=== PATIENT | female | born 1985 ===

== ENCOUNTER 2021-03-16 09:45 | Outpatient (CLI) | payer OTHER ==
[2021-03-16] MEDS ORDERED: LACTATED RINGERS 500 ML IV ONE (10:45)
[2021-03-16 11:11] LABS: Bilirubin,Urine NEG (Negative); Blood,Urine NEG (Negative); Color,Urine Colorless (Yellow); Protein,Urine <15 mg/dL mg/dL (Negative); RBC,Urine < 1.0 /HPF (0.0-6.0); Urobilinogen,Urine < 2.0 mg/dL (<2.0)
[2021-03-16 11:12] LABS: Hematocrit 35.5 % (30.3-42.9); Hemoglobin 12.1 gm/dl (10.1-14.3); Mean Corpuscular HGB Conc 34 % (30-34); Mean Corpuscular Volume 92 fl (79-97); Platelet Count 327 K/mm3 (140-440); Red Blood Count 3.86 M/mm3 (3.65-5.03); Red Cell Distribution Width 12.8 % (13.2-15.2)
[2021-03-16 11:28] LABS: WBC,Urine < 1.0 /HPF (0.0-6.0)
[2021-03-16 11:40] LABS: Alanine Aminotransferase 12 units/L (7-56); Uric Acid 3.7 mg/dL (3.5-7.6)
[2021-03-16 11:42] VITALS: BP 148/96
== END 2021-03-16 14:01 | disposition home or self-care (01) ==
LOC: TRG 09:45 → APU 09:47 → TRG 14:01
PROVIDERS: ATTEND Obstetrics & Gynecology
DX: Z34.93 Encounter for supervision of normal pregnancy, unspecified, third trimester (principal); Z3A.31 31 weeks gestation of pregnancy
CPT/HCPCS: 36415; 59025; 81001; 82565; 83615; 84450; 84460; 84550; 85027

== ENCOUNTER 2021-04-13 02:24 | Inpatient (IN) | payer OTHER ==
[2021-04-13] MEDS ORDERED: miSOPROStol 200 MCG TAB PR PRN (04:23)
[2021-04-13] MEDS ORDERED: BUTORPHANOL 2 MG/1 ML INJ IV PRN ×2 (04:23)
[2021-04-13] MEDS ORDERED: MINERAL OIL 30 ML ORAL LIQD PO PRN (04:23)
[2021-04-13] MEDS ORDERED: METHYLERGONOVINE MALEATE 0.2 MG/ML VIAL IM PRN (04:23)
[2021-04-13] MEDS ORDERED: TERBUTALINE 1 MG/1 ML INJ SUB-Q PRN (04:23)
[2021-04-13] MEDS ORDERED: CARBOPROST TROMETHAMINE 250 MCG/1 ML INJ IM PRN (04:23)
[2021-04-13] MEDS ORDERED: LOPERAMIDE 2 MG CAP PO PRN (04:23)
[2021-04-13] MEDS ORDERED: ePHEDrine SULFATE 50 MG/1 ML INJ IV PRN (04:23)
[2021-04-13] MEDS ORDERED: ACETAMINOPHEN 325 MG TAB PO PRN ×2 (04:23→09:00)
[2021-04-13] MEDS ORDERED: ONDANSETRON 4 MG/2 ML INJ IV PRN ×2 (04:23→09:00)
[2021-04-13] MEDS ORDERED: OXYTOCIN 10 UNIT/1 ML INJ IM PRN (04:23)
[2021-04-13] MEDS ORDERED: LIDOCAINE (2%) 20 MG/1 ML VIAL 20 ML MDV INFILTRATI ONE (04:23)
[2021-04-13] MEDS ORDERED: LACTATED RINGERS 1,000 ML IV SCH (04:30)
[2021-04-13 04:48] LABS: Hematocrit 35.4 % (30.3-42.9); Hemoglobin 12.1 gm/dl (10.1-14.3); Mean Corpuscular HGB Conc 34 % (30-34); Mean Corpuscular Volume 90 fl (79-97); Platelet Count 340 K/mm3 (140-440); Red Blood Count 3.93 M/mm3 (3.65-5.03); Red Cell Distribution Width 13.4 % (13.2-15.2)
[2021-04-13] MEDS ORDERED: OXYTOCIN DRIP 30 UNITS/500 ML BAG IV SCH ×2 (05:00)
--- NOTE | 2021-04-13 06:45 | History and Physical Report ---
History of Present Illness Date of examination: 04/13/21 Date of admission: 04/13/21 Chief complaint: contractions History of present illness: 35 yo A2 at at 35w5d by stated LESLEY 05/13/21 (no records available at delivery) presenting in active labor with spontaneous rupture of membranes, now 5 cm. +FM. Denies PIH symptoms. No PNC for review at delivery. Past History Past Medical History: no pertinent history Past Surgical History: no surgical history Family/Genetic History: none Social history: no significant social history - Obstetrical History Expected Date of Delivery: 05/13/21 Actual Gestation: 35 Week(s) 5 Day(s) : 4 Para: 2 Hx # Term Pregnancies: 2 Number of Living Children: 2 Medications and Allergies Allergies Allergy/AdvReac Type Severity Reaction Status Date / Time No Known Allergies Allergy Unverified 03/16/21 10:44 Active Meds: Active Medications Acetaminophen (Acetaminophen 325 Mg Tab) 650 mg PO Q4H PRN PRN Reason: Pain, Mild (1-3) Butorphanol Tartrate (Butorphanol 2 Mg/1 Ml Inj) 2 mg IV Q2H PRN PRN Reason: Pain, Moderate(4-6) LABOR PAIN Last Admin: 04/13/21 05:55 Dose: 2 mg Documented by: Butorphanol Tartrate (Butorphanol 2 Mg/1 Ml Inj) 2 mg IV Q2H PRN PRN Reason: Pain , Severe (7-10) Carboprost Tromethamine (Carboprost Tromethamine 250 Mcg/1 Ml Inj) 250 mcg IM ONCE PRN PRN Reason: Uterine Bleeding Ephedrine Sulfate (Ephedrine Sulfate 50 Mg/1 Ml Inj) 10 mg IV Q2M PRN PRN Reason: Hypotension Oxytocin/Sodium Chloride (Pitocin/Ns 30 Unit/500ml) 30 units in 500 mls @ 2 mls/hr IV TITR ROMIE; Protocol Lactated Ringer's (Lactated Ringers) 1,000 mls @ 125 mls/hr IV DIRECT ROMIE Last Admin: 04/13/21 05:54 Dose: 125 mls/hr Documented by: Oxytocin/Sodium Chloride (Pitocin/Ns 30 Unit/500ml) 30 units in 500 mls @ 40 mls/hr IV TITR ROMIE; Protocol Ampicillin Sodium (Ampicillin/Ns 1 Gm/50 Ml) 1 gm in 50 mls @ 100 mls/hr IV Q4H ROMIE; Protocol Loperamide HCl (Loperamide 2 Mg Cap) 2 mg PO ONCE PRN PRN Reason: give with Hemabate Methylergonovine Maleate (Methylergonovine Maleate 0.2 Mg/Ml Vial) 0.2 mg IM ONCE PRN PRN Reason: Uterine Bleeding Mineral Oil (Mineral Oil 30 Ml Oral Liqd) 30 ml PO QHS PRN PRN Reason: Constipation Misoprostol (Misoprostol 200 Mcg Tab) 800 mcg HI ONCE PRN PRN Reason: Uterine Bleeding Ondansetron HCl (Ondansetron 4 Mg/2 Ml Inj) 4 mg IV Q8H PRN PRN Reason: Nausea And Vomiting Oxytocin (Oxytocin 10 Unit/1 Ml Inj) 10 unit IM ONCE PRN PRN Reason: Uterine Bleeding Terbutaline Sulfate (Terbutaline 1 Mg/1 Ml Inj) 0.25 mg SUB-Q ONCE PRN PRN Reason: Hyperstimulation/Hypertonicity Review of Systems All systems: negative (expect HPI) - Vital Signs Vital signs: Vital Signs Pulse BP 90 146/98 04/13/21 02:45 04/13/21 02:45 Temp Pulse Resp BP Pulse Ox 98.4 F 99 H 151/73 98 04/13/21 04:42 04/13/21 06:39 04/13/21 06:39 04/13/21 06:36 - Physical Exam Abdomen: Positive: normal appearance, normal bowel sounds Uterus: Positive: enlarged - Obstetrical FHR: category 1 Uterine Contraction Monitor Mode: External Cervical Dilatation: 5 Uterine Contraction Pattern: Regular Results Result Diagrams: 04/13/21 04:00 Abnormal lab results 04/13/21 Range/Units 04:00 WBC 12.0 H (4.5-11.0) K/mm3 All other labs normal. Assessment and Plan - Patient Problems (1) labor in third trimester with delivery Current Visit: Yes Status: Acute Plan to address problem: Patient at 35w5d by stated LESLEY in active labor and rupture of membranes. 5 cm --s/p prior to records obtained. To be obtained .
--- NOTE | 2021-04-13 07:43 | Procedure Note ---
OB Delivery Note - Delivery Date of Delivery: 04/13/21 Surgeon: RYLAND HERNANDEZ JR Estimated blood loss: <100cc - Vaginal Delivery presentation: vertex Delivery position: OA Intrapartum events: labor-<37 weeks, PROM->1hr before delivery Delivery induction: none Delivery augmentation: rupture of membranes Delivery monitor: external FHT, external uterine Route of delivery: Delivery placenta: spontaneous Delivery laceration: none Anesthesia: none Delivery comments: Spontaneous vaginal delivery of male infant, delivered by RN while provider in another room at 0621. Male . 8/9 APGARS. [id number], 3040g. EBL 50 cc. Spontaneous delivery of placenta by me. Intact perineum. Fundus firm. - Infant A at 1 minute: 8 at 5 minutes: 9 Infant Gender: Male
[2021-04-13 08:27] LABS: Hematocrit 36.5 % (30.3-42.9); Hemoglobin 12.5 gm/dl (10.1-14.3); Mean Corpuscular HGB Conc 34 % (30-34); Mean Corpuscular Volume 91 fl (79-97); Platelet Count 343 K/mm3 (140-440); Red Blood Count 4.02 M/mm3 (3.65-5.03); Red Cell Distribution Width 13.3 % (13.2-15.2)
[2021-04-13 08:50] LABS: Alanine Aminotransferase 16 units/L (7-56); Uric Acid 5.2 mg/dL (3.5-7.6)
[2021-04-13] MEDS ORDERED: diphenhydrAMINE 25 MG CAP PO PRN (09:00)
[2021-04-13] MEDS ORDERED: PROMETHAZINE 25 MG RECT SUPP PR PRN (09:00)
[2021-04-13] MEDS ORDERED: AMPICILLIN/NS 1 GM/50 ML 1 GM/50 ML BAG IV SCH (09:00)
[2021-04-13] MEDS ORDERED: WITCH HAZEL/ GLYCERIN PAD TP PRN (09:00)
[2021-04-13] MEDS ORDERED: oxyCODONE /ACETAMINOPHEN 5-325MG TAB PO PRN (09:00)
[2021-04-13] MEDS ORDERED: PROMETHAZINE 25 MG TAB PO PRN (09:00)
[2021-04-13] MEDS ORDERED: LANOLIN/ZINC/DIMETHICONE (LANSINOH) 7 GM TP PRN (09:00)
[2021-04-13] MEDS: IBUPROFEN 600 MG TAB PO SCH ×2 (16:42→23:24)
[2021-04-13] MEDS ORDERED: MAGNESIUM HYDROXIDE (MOM) ORAL LIQD UDC PO PRN (22:00)
[2021-04-14] MEDS: IBUPROFEN 600 MG TAB PO SCH ×4 (05:33→23:22)
--- NOTE | 2021-04-14 10:54 | Progress Note ---
Assessment and Plan A: PP Day #1 Stable P: Follow Routine Orders D/C Home today per patient request RTO in 6 Weeks Subjective - Subjective Date of service: 04/14/21 Patient reports: appetite normal, voiding normally, pain well controlled, flatus , bowel movement, ambulating normally [place]: doing well, bottle feeding (and ) Objective - Vital Signs Latest vital signs: Vital Signs Temp Pulse Resp BP BP Pulse Ox 04/14/21 07:41 97.9 F 71 16 140/79 99 04/14/21 01:54 98.1 F 78 18 139/84 97 04/13/21 16:42 16 04/13/21 15:45 97.5 F L 83 18 116/68 04/13/21 14:00 98.9 F 79 18 133/87 98 04/13/21 13:13 88 126/72 04/13/21 12:43 80 142/78 04/13/21 11:43 93 H 135/73 04/13/21 11:13 94 H 129/82 Intake and Output 04/13/21 04/14/21 04/14/21 22:59 06:59 14:59 Intake Total 440 240 Output Total 900 Balance -460 240 Intake: Oral 440 240 Output: Urine 900 Void 900 Other: Total, Intake Amount 320 240 Total, Output Amount 600 # Voids Void 1 1 - Exam Breasts: Present: normal Cardiovascular: Present: Regular rate Lungs: Present: Clear to auscultation, Normal air movement Abdomen: Present: normal appearance, soft, normal bowel sounds Uterus: Present: normal, firm, fundal height below umbilicus Extremities: Present: normal
--- NOTE | 2021-04-14 10:58 | Discharge Summary ---
Providers - Providers Date of Admission: 04/13/21 06:52 Date of discharge: 04/14/21 Attending physician: RYLAND HERNANDEZ JR, MD Primary care physician: RYLAND HERNANDEZ JR, MD Hospitalization Reason for admission: active labor Delivery: Episiotomy: none Laceration: none Other procedures: none complications: none Discharge diagnosis: IUP at term delivered, delivery baby: male Condition at discharge: Good Disposition: DC-01 TO HOME OR SELFCARE Plan - Provider Discharge Summary Activity: routine, no sex for 6 weeks, no heavy lifting 4 weeks, no strenuous exercise Diet: routine Instructions: routine Additional instructions: [] Smoking cessation referral if applicable(refer to patient education folder for contact #) [] Refer to [facility]'s [facility] Booklet Call your doctor immediately for: * Fever > 100.5 * Heavy vaginal bleeding ( >1 pad per hour) * Severe persistent headache * Shortness of breath * Reddened, hot, painful area to leg or breast * Drainage or odor from incision. * Keep incision clean and dry at all times and follow doctor's instructions regarding bathing/showering - Follow up plan Follow up: RYLAND HERNANDEZ JR, MD [Primary Care Provider] - 6 Weeks
[2021-04-15] MEDS: IBUPROFEN 600 MG TAB PO SCH ×3 (05:26→20:20)
--- NOTE | 2021-04-15 09:24 | Event Note ---
Date: 04/15/21 Pt has chtn and her b/p has been creeping up post delivery. Prior to hospitalization she was taking Labetalol 300mg po bid, but hasn't taken any s pranay admission. Her [facility] labs were wnl. She denies [place], visual problems or epigastric pain. Coding Quality Coordinator spoke with Dr Martinez and was advised to start Labetalol 100mg po bid, d/c pt to home and have her f/u in 1 wk for a b/p check.
[2021-04-16] MEDS: IBUPROFEN 600 MG TAB PO SCH ×4 (03:24→23:22)
--- NOTE | 2021-04-16 12:14 | Progress Note ---
Assessment and Plan A: day 3 S/P . Chronic hypertension; elevated blood pressures (Labetalol dose increased today). AMA. P: Repeat CBC, CMP, LDH, uric acid, UA. Labetalol 300 mg po BID. Monitor BPs. Anticipate discharge home tomorrow if BPs are well controlled and labs are stable. Subjective - Subjective Date of service: 04/16/21 Principal diagnosis: day 3 S/P Interval history: Patient has chronic hypertension. BPs have not been well controlled. Labetalol dose has been increased this morning to 300 mg po BID. Patient denies headache, visual disturbance, nausea or vomiting, abdominal pain, leg pain, heavy bleeding, or any other problems. Patient is voiding without difficulty and tolerating a regular diet. Patient reports: appetite normal, voiding normally, pain well controlled, flatus, ambulating normally, no dizzy ambulation, no nauseated [place]: doing well Objective - Vital Signs Latest vital signs: Vital Signs Temp Pulse Resp BP Pulse Ox 04/16/21 08:17 97.9 F 67 16 144/70 99 04/16/21 00:15 98.4 F 76 20 151/69 97 04/15/21 22:37 76 154/78 97 04/15/21 20:20 18 04/15/21 16:38 98.0 F 80 20 151/77 98 Intake and Output 04/15/21 04/16/21 04/16/21 23:59 07:59 15:59 Intake Total 360 600 120 Balance 360 600 120 Intake: Oral 120 120 Intake, Free Water 240 600 Other: Total, Intake Amount 120 120 # Voids Void 1 1 1 - Exam Cardiovascular: Present: Regular rate Lungs: Present: Clear to auscultation Abdomen: Present: normal appearance, soft, normal bowel sounds. Absent: distention, tenderness, guarding, rigidity Uterus: Present: normal, firm, fundal height below umbilicus. Absent: bogginess, tenderness Extremities: Present: edema. Absent: tenderness
[2021-04-16 17:05] LABS: Basophils % (Auto) 0.1 % (0.0-1.8); Eosinophils # (Auto) 0.2 K/mm3 (0.0-0.4); Eosinophils % (Auto) 2.5 % (0.0-4.3); Hematocrit 34.9 % (30.3-42.9); Lymphocytes % (Auto) 21.4 % (13.4-35.0); Mean Corpuscular HGB Conc 34 % (30-34); Mean Corpuscular Volume 93 fl (79-97); Monocytes # (Auto) 0.6 K/mm3 (0.0-0.8); Monocytes % (Auto) 6.3 % (0.0-7.3); Platelet Count 360 K/mm3 (140-440); Red Blood Count 3.77 M/mm3 (3.65-5.03)
[2021-04-16 17:19] LABS: Alanine Aminotransferase 26 units/L (7-56); Albumin 3.4 g/dL (3.9-5); Blood Urea Nitrogen 10 mg/dL (7-17); Calcium 9.2 mg/dL (8.4-10.2); Hemolysis Index 22; Uric Acid 5.2 mg/dL (3.5-7.6)
[2021-04-16 17:25] LABS: BUN/Creatinine Ratio 17
[2021-04-16 18:03] LABS: Bacteria,Urine 1+ /HPF (Negative); Bilirubin,Urine NEG (Negative); Blood,Urine LG (Negative); Color,Urine Straw (Yellow); Mucus,Urine FEW /HPF; Protein,Urine <15 mg/dL mg/dL (Negative); RBC,Urine < 1.0 /HPF (0.0-6.0); Urobilinogen,Urine < 2.0 mg/dL (<2.0)
[2021-04-17] MEDS: IBUPROFEN 600 MG TAB PO SCH ×3 (05:07→23:13)
--- NOTE | 2021-04-17 07:58 | Event Note ---
Date: 04/17/21 Patient is taking Labetalol 300 mg po BID. Added Procardia 30 mg po QD. Consulted with re: this patient.
[2021-04-17] MEDS: NIFEdipine XL 30 MG TAB PO SCH (11:23)
--- NOTE | 2021-04-17 13:12 | Progress Note ---
Subjective - Subjective Date of service: 04/17/21 Principal diagnosis: day 3 S/P Interval history: BP's in severe range, on PO labetalol and procardia added this AM will monitor overnight continue routine and postop care stable Argenis Meek MD Patient reports: appetite normal, voiding normally, pain well controlled, ambulating normally [place]: doing well Objective - Vital Signs Latest vital signs: Vital Signs Temp Pulse Resp BP Pulse Ox 04/17/21 08:33 97.9 F 61 17 149/75 97 04/17/21 03:51 98.0 F 69 18 166/88 97 04/17/21 00:06 98.3 F 72 16 152/76 97 04/16/21 23:12 79 160/88 04/16/21 15:48 98.3 F 80 20 154/85 96 Intake and Output 04/16/21 04/17/21 04/17/21 23:59 07:59 15:59 Intake Total 400 480 Balance 400 480 Intake: Oral 400 Intake, Free Water 480 Other: Total, Intake Amount 200 # Voids Void 1 2 - Labs Labs: Abnormal lab results 04/16/21 Range/Units 16:24 Glucose 102 H (65-100) mg/dL Alkaline Phosphatase 145 H (35-129) units/L Lactate Dehydrogenase 240 H (91-180) units/L Albumin 3.4 L (3.9-5) g/dL
[2021-04-17] MEDS ORDERED: NIFEdipine XL 30 MG TAB PO SCH (14:00)
[2021-04-18] MEDS: IBUPROFEN 600 MG TAB PO SCH (05:29)
--- NOTE | 2021-04-18 11:07 | Progress Note ---
Assessment and Plan A: day 5 S/P . Chronic hypertension. AMA. P: Discharge patient home today. Discharge instructions and warning signs discussed with patient. Advised patient to continue taking Labetalol 300 mg po BID and Procardia 30 mg po QD at home. The following Rx were called to 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 Advised patient to avoid IC and lifting. Advised patient to follow up at [facility] clinic in 48 hours for blood pressure check. Patient voiced understanding of all instructions. Subjective - Subjective Date of service: 04/18/21 Principal diagnosis: day 3 S/P Interval history: Patient denies headache, visual disturbance, nausea or vomiting, leg pain, abdominal pain, or heavy vaginal bleeding. Desires discharge home today. Blood pressures well controlled now on Labetalol 300 mg po BID and Procardia 30 mg daily. Patient reports: appetite normal, voiding normally, pain well controlled, flatus, ambulating normally, no dizzy ambulation, no nauseated [place]: doing well Objective - Vital Signs Latest vital signs: Vital Signs Temp Pulse Resp BP Pulse Ox 04/18/21 09:45 98.4 F 84 17 128/77 96 04/18/21 04:32 98.8 F 78 18 134/79 95 04/17/21 23:13 93 H 115/68 04/17/21 21:15 98.0 F 98 H 18 148/93 96 04/17/21 15:00 98.3 F 77 18 150/88 97 Intake and Output 04/17/21 04/18/21 04/18/21 23:59 07:59 15:59 Intake Total 200 Balance 200 Intake: Oral 200 Other: Total, Intake Amount 200 # Voids Void 1 - Exam Cardiovascular: Present: Regular rate Lungs: Present: Clear to auscultation Abdomen: Present: normal appearance, soft, normal bowel sounds. Absent: distention, tenderness, guarding, rigidity Uterus: Present: normal, firm, fundal height below umbilicus. Absent: bogginess, tenderness Extremities: Present: normal. Absent: tenderness, edema
--- NOTE | 2021-04-18 11:15 | Discharge Summary ---
Providers - Providers Date of Admission: 04/13/21 06:52 Date of discharge: 04/18/21 Attending physician: RYLAND HERNANDEZ JR, MD Primary care physician: RYLAND HERNANDEZ JR, MD Hospitalization Reason for admission: active labor Delivery: Episiotomy: none Laceration: none Other procedures: none complications: none Discharge diagnosis: delivery baby: male Pertinent studies: Labs Hospital course: Stable hospital course Condition at discharge: Good Disposition: DC-01 TO HOME OR SELFCARE - Discharge Diagnoses (1) delivery Status: Acute (2) Chronic hypertension Status: Acute Plan - Discharge Medications Prescriptions: Labetalol HCl [Labetalol 300mg TAB] 300 mg PO BID #60 tablet Ibuprofen [Motrin] 600 mg PO Q8H PRN #60 tablet PRN Reason: Pain oxyCODONE /ACETAMINOPHEN [Percocet 5/325] 1 tab PO Q6HR PRN #20 tablet PRN Reason: Pain NIFEdipine XL [Procardia Xl] 30 mg PO QDAY #30 tablet - Provider Discharge Summary Activity: routine, no sex for 6 weeks, no heavy lifting 4 weeks, no strenuous exercise Diet: routine Instructions: routine Additional instructions: Continue taking Labetalol 300 mg by oral route every 12 hours at home. Also continue taking Procardia 30 mg by oral route daily at home. Prescriptions have been called to [facility] pharmacy on [address]. Follow up at [facility] in 48 hours for BP check. Call your doctor immediately for: * Fever > 100.5 * Heavy vaginal bleeding ( >1 pad per hour) * Severe persistent headache * Shortness of breath * Reddened, hot, painful area to leg or breast - Follow up plan Follow up: RYLAND HERNANDEZ JR, MD [Primary Care Provider] - 48 Hours Forms: [facility] Discharge Summary
[2021-04-18] MEDS: NIFEdipine XL 30 MG TAB PO SCH (11:57)
[2021-04-18 17:31] VITALS: BP 146/84
== END 2021-04-18 12:45 | disposition home or self-care (01) | DRG 774 ==
LOC: TRG 02:24 → APU 02:36 → LD 04:35 → TRG 06:52 → OB 13:58
PROVIDERS: ADMIT Obstetrics & Gynecology; ATTEND Obstetrics & Gynecology
PROC: 10E0XZZ Delivery of Products of Conception, External Approach (ICD-10-PCS; principal; 2021-04-13)
DX: O42.013 Preterm premature rupture of membranes, onset of labor within 24 hours of rupture, third trimester (principal); O10.92 Unspecified pre-existing hypertension complicating childbirth; Z3A.35 35 weeks gestation of pregnancy; Z37.0 Single live birth; Z20.822 Contact with and (suspected) exposure to COVID-19
CPT/HCPCS: 36415; 59025; 80053; 81001; 82565; 83615; 84450; 84460; 84550; 85025; 85027; 86592; 86850; 86900; 86901; G0378; J0595; J7120; U0003